=== PATIENT | female | born 1995 | race Caucasian/White ===

== ENCOUNTER 2017-04-14 14:44 | Emergency (ER) | payer OTHER ==
[~2017-04-14] VITALS: Ht 149.9 cm; Wt 72.5 kg
[2017-04-14 14:56] VITALS: Ht 149.9 cm; Wt 72.5 kg
[2017-04-14] MEDS ORDERED: IBUP-1542 PO (15:43)
--- NOTE | 2017-04-15 | ERD ---
ER Documentation Chief Complaint Date/Time DATE: 04/14/17 TIME: 23:58 Chief Complaint PT with R knee pain X 2 months, has torn curry braga MD. HPI This patient is a 21-year-old female with past medical history of torn meniscus of the right knee approximately 2 months ago presenting to the emergency department for right knee pain. The patient has had no treatment for the torn meniscus. The patient states she is here requesting referral to orthopedic doctors. Her pain is intermittent and it is currently 6 out of 10 in severity. Pain is aggravated by walking. Pain is alleviated by resting and elevation. The patient is taking ibuprofen at home with mild relief of symptoms. The pain is improved since the injury. No other symptoms to report currently ROS All systems reviewed and are negative except as per history of present illness. Medications Home Meds Active Scripts Ibuprofen* (Motrin*) 600 Mg Tab, 600 MG PO Q6, #30 TAB Prov:SEMAJFLORI Best PA-C 04/14/17 Physical Exam Vitals Vital Signs Date Time Temp Pulse Resp B/P Pulse Ox O2 Delivery O2 Flow Rate FiO2 04/14/17 14:56 98.9 68 18 137/83 97 Physical Exam Const: The patient is resting comfortably in no acute distress peer Head: Atraumatic Eyes: Normal Conjunctiva ENT: Normal External Ears, Nose and Mouth. Neck: Full range of motion..~ No meningismus. Resp: Clear to auscultation bilaterally Cardio: Regular rate and rhythm, no murmurs Abd: Soft, non tender, non distended. Normal bowel sounds Skin: No petechiae or rashes Back: No midline or flank tenderness Ext: No cyanosis, or edema. The patient is wearing any brace on her right knee and there is limited range of motion secondary to pain. Neur: Awake and alert Psych: Normal Mood and Affect Procedures/MDM 21-year-old female presents to the emergency department secondary to complaints of right knee pain after car meniscus injury approximately 2 months ago. The patient is requesting a referral to orthopedic surgery. The patient was given options for [facility] and the orthopedic center in [place]. The patient is to have close follow-up with the primary care physician and she demonstrates good understanding. She is stable for outpatient management with prescription for ibuprofen. All questions and concerns were addressed. Strict ER return precautions discussed and the patient demonstrates good understanding. Departure Diagnosis: Primary Impression: Knee pain, right Condition: Fair Patient Instructions: Treating Meniscus Problems, Knee Pain, Meniscus Injury ( Possible) Referrals: [facility] YOU HAVE RECEIVED A MEDICAL SCREENING EXAM AND THE RESULTS INDICATE THAT YOU DO NOT HAVE A CONDITION THAT REQUIRES URGENT TREATMENT IN THE EMERGENCY DEPARTMENT. FURTHER EVALUATION AND TREATMENT OF YOUR CONDITION CAN WAIT UNTIL YOU ARE SEEN IN YOUR DOCTORS OFFICE WITHIN THE NEXT 1-2 DAYS. IT IS YOUR RESPONSIBILITY TO MAKE AN APPOINTMENT FOR FOLOW-UP CARE. IF YOU HAVE A PRIMARY DOCTOR --you should call your primary doctor and schedule an appointment IF YOU DO NOT HAVE A PRIMARY DOCTOR YOU CAN CALL OUR PHYSICIAN REFERRAL HOTLINE AT IF YOU CAN NOT AFFORD TO SEE A PHYSICIAN YOU CAN CHOSE FROM THE FOLLOWING [facility] [address] [facility] [address] [facility] [address] [facility] [address] [facility] [address] [facility] [address] [facility]. [facility] Urgent Care 7 a.m.- 11 p.m. Every Day of the Week NO APPOINTMENT OR AUTHORIZATION NEEDED so [facility] Hours: Fri-Fri 9:00 AM - 5:00 PM Additional Instructions: Follow up with your PCP within the next 1-3 days for a more thorough evaluation and a possible referral to a specialist. Return the the emergency department immediately if symptoms worsen or change. If you have any questions regarding medications, ask your pharmacist or us before you leave. If any adverse reactions, occur while taking your medications, discontinue the treatment and return to the emergency department immediately. If any new or worsening symptoms, uncontrolled fevers, or other unexplained symptoms occur, return to the emergency department immediately. Take your medications as directed, and complete the entire course of treatment. FLORI CHA PA-C April 15, 2017 00:00
== END 2017-04-14 15:54 | disposition home or self-care (01) ==
LOC: E/R 14:44
DX: M25.561 Pain in right knee (principal)
CPT/HCPCS: 99283